=== PATIENT | female | born 1965 | race African-American/Black ===

== ENCOUNTER 2018-09-11 10:15 | Emergency (ER) | payer OTHER ==
[~2018-09-11] VITALS: Ht 167.6 cm; Wt 54.5 kg
[2018-09-11] MEDS ORDERED: HYDROCODONE/ACETAMINOPHEN 5/325MG TABLET PO ONE (12:00)
[2018-09-11 12:34] VITALS: BP 108/57
== END 2018-09-11 13:49 | disposition home or self-care (01) ==
LOC: ER 10:15
DX: M25.511 Pain in right shoulder (principal); Z98.890 Other specified postprocedural states
CPT/HCPCS: 73030; 99283

== ENCOUNTER 2025-09-10 06:15 | Emergency (ER) | payer MEDICAID ==
[~2025-09-10] VITALS: Ht 167.6 cm; Wt 62.0 kg
[2025-09-10 06:16] VITALS: O2SAT 98
[2025-09-10 07:16] LABS: BASOPHILS % 0.9 % (0.0-2.0); EOSINOPHILS % 1.9 % (0.0-5.0); HEMATOCRIT. 37.6 % (36.0-48.0); HEMOGLOBIN. 12.3 g/dL (12.0-16.0); LYMPHOCYTES % 32.6 % (20.0-50.0); MEAN PLATELET VOLUME 10.2 fl (7.4-10.4); MONOCYTES % 11.6 % (2.0-8.0); NEUTROPHILS % 53.0 % (40.0-76.0); PLATELET 174 x1000/uL (130-400); RED BLOOD CELL COUNT 3.99 mill/uL (4.2-5.4); RED CELL DISTRIBUTION WIDTH 13.2 % (11.6-14.6)
[2025-09-10] MEDS: NITROGLYCERIN 0.4MG TABLET SL SL PRN (07:26)
[2025-09-10] MEDS: ASPIRIN 81MG TABLET PO ONE (07:26)
[2025-09-10 07:28] LABS: CREATININE 0.8 mg/dL (0.6-1.0); UREA NITROGEN BLOOD 6 mg/dL (9-23)
[2025-09-10 07:29] LABS: PROTEIN TOTAL 6.6 g/dL (6.0-8.3); TROPONIN I HIGH SENSITIVITY < 4 ng/L (3.0-34)
[2025-09-10 07:30] LABS: ASPARTATE AMINOTRANSFERASE 26 IU/L (<34); BILIRUBIN DIRECT < 0.1 mg/dL (<=3.0); BILIRUBIN TOTAL 0.5 mg/dL (0.1-1.0)
[2025-09-10 08:34] LABS: INR 1.0
[2025-09-10 09:56] LABS: TROPONIN I HIGH SENSITIVITY < 4 ng/L (3.0-34)
[2025-09-10] MEDS: IBUPROFEN 600MG TABLET PO ONE (10:06)
[2025-09-10 10:16] VITALS: BP 120/77; PULSE 75; RESP 14; TEMP 36.9; O2SAT 98
== END 2025-09-10 10:17 | disposition home or self-care (01) ==
LOC: ER 06:15 → CANBEDREQ 10:03 → ER 10:17
DX: R07.89 Other chest pain (principal); R06.02 Shortness of breath; Z79.899 Other long term (current) drug therapy
CPT/HCPCS: 80076; 80048; 83880; 83735; 85025; 85610; 85730; 84484; 36415; 71045; 93005; 99285; Z7610